=== PATIENT | female | born 1940 | race Caucasian/White ===

== ENCOUNTER 2016-08-05 19:02 | Emergency (ER) | payer SELFPAY ==
[~2016-08-05 19:02] MED LIST: ARICEPT10 MG PO; BACTRIM DS TAB1 EACH PO; MACROBID 100 M100 MG PO; SYNTHROID 88 M88 MCG PO
[2016-08-05 20:37] LABS: HEMOGLOBIN 11.6 gm/dl (12.3-15.3); RED BLOOD COUNT 3.89 M/UL (4.00-5.10); WHITE BLOOD COUNT 11.8 K/UL (4.5-11.0)
[2016-08-05 21:04] LABS: BUN/CREATININE RATIO 25 (0-10)
== END 2016-08-06 01:30 | disposition home or self-care (01) ==
LOC: ER1 19:02
PROVIDERS: Student in an Organized Health Care Education/Training Program
DX: N30.01 Acute cystitis with hematuria (principal); G30.9 Alzheimer's disease, unspecified; I10 Essential (primary) hypertension; Z88.0 Allergy status to penicillin
CPT/HCPCS: 36415; 71010; 80053; 81001; 82550; 82553; 83690; 83874; 84484; 85025; 85610; 85730; 87077; 87086; 87186; 93005; 96361; 96365; 99284; J0696; J7050